=== PATIENT | male | born 1955 ===

== ENCOUNTER 2019-08-08 09:34 | Emergency (ER) | payer BC ==
[2019-08-08] MEDS ORDERED: Sodium Chloride 0.9% 10 ML Syringe FLUSH PRN (09:48)
[2019-08-08] MEDS ORDERED: Ondansetron 4 MG/2 ML SDV IVPUSH ONE (09:48)
[2019-08-08] MEDS ORDERED: Sodium Chloride 0.9% 2.5 ML Syringe FLUSH PRN ×2 (09:48)
[2019-08-08] MEDS ORDERED: Sodium Chloride 0.9% 1,000 ML IV ONE (09:48)
[2019-08-08] MEDS ORDERED: Famotidine 20 MG/2 ML SDV IVPUSH ONE (09:56)
[2019-08-08] MEDS ORDERED: Sodium Chloride 0.9% 1,000 ML IV SCH ×2 (10:00→14:30)
[2019-08-08 10:36] LABS: CARBON DIOXIDE,CO2 28.8 mmol/L (21.0-32.0); POTASSIUM,K 2.8 mmol/L (3.5-5.1)
--- NOTE | 2019-08-08 11:25 | CT ---
CT abdomen and pelvis Technique: Multiple axial sections were obtained from above the dome of the diaphragm inferiorly through the pubic symphysis. Intravenous and oral contrast not utilized. Dilated fluid-filled stomach as well as dilated small bowel loops are seen. Dilatation appears to stop at an area of spiculation within the mid abdomen. Difficult to exclude a mesenteric mass as the etiology. Findings could also represent an exophytic pancreatic carcinoma. Loculated pleural effusions are seen within both lung bases. Several calcified gallstones are seen within the gallbladder. Fatty infiltration is seen within the liver. Spleen size is normal. Adrenal glands show no nodule. Aorta shows no aneurysm. No retroperitoneal adenopathy is seen. No pelvic mass or adenopathy is seen. Small fat-containing bilateral inguinal hernias are noted. Bone window settings were reviewed which shows scattered degenerative changes within the spine. No acute osseous finding is appreciated. Impression: 1. Dilated small bowel loops which stops within the mid abdomen in an area of what appears to be a mesenteric mass. This mass could also represent an exophytic pancreatic mass. In any event, findings are suspicious for obstruction from neoplasm. 2. Fatty infiltration within the liver. 3. Small loculated bilateral pleural effusions. 4. Fatty infiltration within the liver. Other findings believed to be incidental as noted above. Diagnostic code #9 This report was dictated in MDT
[2019-08-08] MEDS ORDERED: Lidocaine 2% Viscous Solution 100 ML Bottle PO ONE (12:11)
[2019-08-08] MEDS ORDERED: Sodium Chloride 0.9% 500 ML IV SCH ×4 (12:20→14:00)
--- NOTE | 2019-08-08 12:54 | CR ---
Abdomen: Supine view of the abdomen was obtained utilizing portable technique. Nasogastric tube is seen. Tip lies within the body or antrum of the stomach in satisfactory position. Dilated small bowel loops are noted. Degenerative change is seen within the spine. Impression: 1. Satisfactory position of nasogastric tube. 2. Partially visualized small bowel obstruction. Diagnostic code #3 This report was dictated in MDT
--- NOTE | 2019-08-08 13:33 | PCM.CONS ---
<Ping Murillo M - Last Filed: 08/08/19 13:32> H&P History of Present Illness abdominal pain Pain Score (Numeric/FACES): 4 - Related Data Allergies/Adverse Reactions: Allergies Allergy/AdvReac Type Severity Reaction Status Date / Time No Known Allergies Allergy Verified 08/08/19 09:46 Past Medical History - Past Health History Medical/Surgical History: Denies Medical/Surgical History - Infectious Disease History Infectious Disease History: Reports: Chicken Pox Social & Family History - Family History Family Medical History: Noncontributory - Tobacco Use Smoking Status *Q: Never Smoker - Recreational Drug Use Recreational Drug Use: No Exam - Vital Signs Vital Signs: Last Vital Signs Temp 35.3 C L 08/08/19 09:46 Pulse 90 08/08/19 12:45 Resp 20 08/08/19 12:45 BP 98/67 08/08/19 12:45 Pulse Ox 94 L 08/08/19 12:45 Weight: 113.398 kg - Patient Data Lab Results Last 24 hrs: Laboratory Results - last 24 hr 08/08/19 08/08/19 08/08/19 Range/Units 09:44 09:44 09:44 WBC 17.06 H (4.0-11.0) K/uL RBC 4.99 (4.50-5.90) M/uL Hgb 14.8 (13.0-17.0) g/dL Hct 43.9 (38.0-50.0) % MCV 88.0 (80.0-98.0) fL MCH 29.7 (27.0-32.0) pg MCHC 33.7 (31.0-37.0) g/dL RDW Std Deviation 45.4 (28.0-62.0) fl RDW Coeff of Elver 14 (11.0-15.0) % Plt Count 372 (150-400) K/uL MPV 10.90 (7.40-12.00) fL Add Manual Diff YES Neutrophils % (Manual) 34 L (48.0-80.0) % Band Neutrophils % 21 % Lymphocytes % (Manual) 23 (16.0-40.0) % Monocytes % (Manual) 22 H (0.0-15.0) % Nucleated RBC % 0.0 /100WBC Absolute Seg Neuts 5.8 H (1.4-5.7) Band Neutrophils # 3.6 Lymphocytes # (Manual) 3.9 H (0.6-2.4) Monocytes # (Manual) 3.8 H (0.0-0.8) Nucleated RBCs # 0 K/uL INR 0.97 APTT 28.5 (18.6-31.3) SEC Sodium 130 L (136-148) mmol/L Potassium 2.8 L (3.5-5.1) mmol/L Chloride 87 L (98-107) mmol/L Carbon Dioxide 28.8 (21.0-32.0) mmol/L BUN 90 H (7.0-18.0) mg/dL Creatinine 5.3 H (0.8-1.3) mg/dL Est Cr Clr Drug Dosing 15.39 mL/min Estimated GFR (MDRD) 11.0 ml/min Glucose 193 H (74-106) mg/dL Calcium 8.4 L (8.5-10.1) mg/dL Total Bilirubin 1.2 H (0.2-1.0) mg/dL AST 51 H (15-37) IU/L ALT 76 H (14-63) IU/L Alkaline Phosphatase 49 (46-116) U/L Total Protein 6.4 (6.4-8.2) g/dL Albumin 2.2 L (3.4-5.0) g/dL Globulin 4.2 H (2.6-4.0) g/dL Albumin/Globulin Ratio 0.5 L (0.9-1.6) Lipase 481 H (73-393) U/L Blood Type Antibody Screen 08/08/19 Range/Units 09:50 WBC (4.0-11.0) K/uL RBC (4.50-5.90) M/uL Hgb (13.0-17.0) g/dL Hct (38.0-50.0) % MCV (80.0-98.0) fL MCH (27.0-32.0) pg MCHC (31.0-37.0) g/dL RDW Std Deviation (28.0-62.0) fl RDW Coeff of Elver (11.0-15.0) % Plt Count (150-400) K/uL MPV (7.40-12.00) fL Add Manual Diff Neutrophils % (Manual) (48.0-80.0) % Band Neutrophils % % Lymphocytes % (Manual) (16.0-40.0) % Monocytes % (Manual) (0.0-15.0) % Nucleated RBC % /100WBC Absolute Seg Neuts (1.4-5.7) Band Neutrophils # Lymphocytes # (Manual) (0.6-2.4) Monocytes # (Manual) (0.0-0.8) Nucleated RBCs # K/uL INR APTT (18.6-31.3) SEC Sodium (136-148) mmol/L Potassium (3.5-5.1) mmol/L Chloride (98-107) mmol/L Carbon Dioxide (21.0-32.0) mmol/L BUN (7.0-18.0) mg/dL Creatinine (0.8-1.3) mg/dL Est Cr Clr Drug Dosing mL/min Estimated GFR (MDRD) ml/min Glucose (74-106) mg/dL Calcium (8.5-10.1) mg/dL Total Bilirubin (0.2-1.0) mg/dL AST (15-37) IU/L ALT (14-63) IU/L Alkaline Phosphatase (46-116) U/L Total Protein (6.4-8.2) g/dL Albumin (3.4-5.0) g/dL Globulin (2.6-4.0) g/dL Albumin/Globulin Ratio (0.9-1.6) Lipase (73-393) U/L Blood Type A POSITIVE Antibody Screen NEGATIVE Result Diagrams: 08/08/19 09:44 08/08/19 09:44 Sepsis Event Note - Evaluation Sepsis Screening Result: No Definite Risk - Focused Exam Vital Signs: Vital Signs Temp Pulse Resp BP Pulse Ox 08/08/19 12:45 90 20 98/67 94 L 08/08/19 11:20 95 18 101/59 L 95 08/08/19 10:35 94 20 92/61 94 L 08/08/19 10:25 93 20 100/63 95 08/08/19 10:15 92 22 H 100/59 L 94 L 08/08/19 09:55 99 20 106/42 L 93 L 08/08/19 09:46 35.3 C L 103 H 20 87/52 L 85 L Date Exam was Performed: 08/08/19 Time Exam was Performed: 13:32 Consult PN Assessment/Plan Procedures: Procedures ASSAY THYROID STIM HORMONE (01/14/14) COMPREHEN METABOLIC PANEL (09/15/18) LIPID PANEL (09/15/18) ROUTINE VENIPUNCTURE (09/15/18) <Jose A Sanchez - Last Filed: 08/08/19 14:28> H&P History of Present Illness - General Date of Service: 08/08/19 - History of Present Illness Initial Comments - Free Text/Narative: History of present illness: [] Patient presents with abdominal pain and vomiting since she states she has been having distended abdomen and vomiting and just dry heaving is not been able to hold down any food or fluids. Had anything like this before denies any prior surgeries no fever chills he does admit that he has not been passing gas in several days. Thing seems to make it better or worse Review of systems: As per history of present illness and below otherwise all systems reviewed and negative. Past medical history: As per history of present illness and as reviewed below otherwise noncontributory. Surgical history: As per history of present illness and as reviewed below otherwise noncontributory. Social history: No reported history of drug or alcohol abuse. Family history: As per history of present illness and as reviewed below otherwise noncontributory. Physical exam: HEENT: Atraumatic, normocephalic, pupils reactive, negative for conjunctival pallor or scleral icterus, mucous membranes moist, throat clear, neck supple, nontender, trachea midline. Lungs: Clear to auscultation, breath sounds equal bilaterally, chest nontender. Heart: S1S2, regular, negative for clicks, rubs, or JVD. Abdomen: Abdomen is distended hyperresonant to percussion there is diffuse tenderness on palpation. Pelvis: Stable nontender. Genitourinary: Deferred. Rectal: Deferred. Extremities: Atraumatic, negative for cords or calf pain. Neurovascular unremarkable. Neuro: Awake, alert, oriented. Cranial nerves II through XII unremarkable. Cerebellum unremarkable. Motor and sensory unremarkable throughout. Exam nonfocal. Diagnostics: [] Therapeutics: [] Impressin small bowel obstruction, abdominal pain, abdominal mass, renal failure Plan: []Patient will undergo CT scanning of his abdomen and pelvis for presumed bowel obstruction labs will be drawn medicine will be given for pain and discomfort nausea and he will be reassessed. Patient has some hypotension he will be given fluid boluses as well as maintenance fluids [] Definitive disposition and diagnosis as appropriate pending reevaluation and review of above. H&P Review of Systems - Review of Systems: Review Of Systems: See Below Exam - Exam Exam: See Below - Vital Signs Vital Signs: Last Vital Signs Temp 35.3 C L 08/08/19 09:46 Pulse 87 08/08/19 13:47 Resp 18 08/08/19 13:47 BP 88/47 L 08/08/19 13:47 Pulse Ox 95 08/08/19 13:47 - Patient Data Lab Results Last 24 hrs: Laboratory Results - last 24 hr 08/08/19 08/08/19 08/08/19 Range/Units 09:44 09:44 09:44 WBC 17.06 H (4.0-11.0) K/uL RBC 4.99 (4.50-5.90) M/uL Hgb 14.8 (13.0-17.0) g/dL Hct 43.9 (38.0-50.0) % MCV 88.0 (80.0-98.0) fL MCH 29.7 (27.0-32.0) pg MCHC 33.7 (31.0-37.0) g/dL RDW Std Deviation 45.4 (28.0-62.0) fl RDW Coeff of Elver 14 (11.0-15.0) % Plt Count 372 (150-400) K/uL MPV 10.90 (7.40-12.00) fL Add Manual Diff YES Neutrophils % (Manual) 34 L (48.0-80.0) % Band Neutrophils % 21 % Lymphocytes % (Manual) 23 (16.0-40.0) % Monocytes % (Manual) 22 H (0.0-15.0) % Nucleated RBC % 0.0 /100WBC Absolute Seg Neuts 5.8 H (1.4-5.7) Band Neutrophils # 3.6 Lymphocytes # (Manual) 3.9 H (0.6-2.4) Monocytes # (Manual) 3.8 H (0.0-0.8) Nucleated RBCs # 0 K/uL INR 0.97 APTT 28.5 (18.6-31.3) SEC Sodium 130 L (136-148) mmol/L Potassium 2.8 L (3.5-5.1) mmol/L Chloride 87 L (98-107) mmol/L Carbon Dioxide 28.8 (21.0-32.0) mmol/L BUN 90 H (7.0-18.0) mg/dL Creatinine 5.3 H (0.8-1.3) mg/dL Est Cr Clr Drug Dosing 15.39 mL/min Estimated GFR (MDRD) 11.0 ml/min Glucose 193 H (74-106) mg/dL Calcium 8.4 L (8.5-10.1) mg/dL Total Bilirubin 1.2 H (0.2-1.0) mg/dL AST 51 H (15-37) IU/L ALT 76 H (14-63) IU/L Alkaline Phosphatase 49 (46-116) U/L Total Protein 6.4 (6.4-8.2) g/dL Albumin 2.2 L (3.4-5.0) g/dL Globulin 4.2 H (2.6-4.0) g/dL Albumin/Globulin Ratio 0.5 L (0.9-1.6) Lipase 481 H (73-393) U/L Blood Type Antibody Screen 08/08/19 Range/Units 09:50 WBC (4.0-11.0) K/uL RBC (4.50-5.90) M/uL Hgb (13.0-17.0) g/dL Hct (38.0-50.0) % MCV (80.0-98.0) fL MCH (27.0-32.0) pg MCHC (31.0-37.0) g/dL RDW Std Deviation (28.0-62.0) fl RDW Coeff of Elver (11.0-15.0) % Plt Count (150-400) K/uL MPV (7.40-12.00) fL Add Manual Diff Neutrophils % (Manual) (48.0-80.0) % Band Neutrophils % % Lymphocytes % (Manual) (16.0-40.0) % Monocytes % (Manual) (0.0-15.0) % Nucleated RBC % /100WBC Absolute Seg Neuts (1.4-5.7) Band Neutrophils # Lymphocytes # (Manual) (0.6-2.4) Monocytes # (Manual) (0.0-0.8) Nucleated RBCs # K/uL INR APTT (18.6-31.3) SEC Sodium (136-148) mmol/L Potassium (3.5-5.1) mmol/L Chloride (98-107) mmol/L Carbon Dioxide (21.0-32.0) mmol/L BUN (7.0-18.0) mg/dL Creatinine (0.8-1.3) mg/dL Est Cr Clr Drug Dosing mL/min Estimated GFR (MDRD) ml/min Glucose (74-106) mg/dL Calcium (8.5-10.1) mg/dL Total Bilirubin (0.2-1.0) mg/dL AST (15-37) IU/L ALT (14-63) IU/L Alkaline Phosphatase (46-116) U/L Total Protein (6.4-8.2) g/dL Albumin (3.4-5.0) g/dL Globulin (2.6-4.0) g/dL Albumin/Globulin Ratio (0.9-1.6) Lipase (73-393) U/L Blood Type A POSITIVE Antibody Screen NEGATIVE Result Diagrams: 08/08/19 09:44 08/08/19 09:44 Sepsis Event Note - Focused Exam Vital Signs: Vital Signs Temp Pulse Resp BP Pulse Ox 08/08/19 13:47 87 18 88/47 L 95 08/08/19 12:45 90 20 98/67 94 L 08/08/19 12:20 96 20 92/37 L 91 L 08/08/19 11:40 94 18 113/56 L 95 08/08/19 11:20 95 18 101/59 L 95 08/08/19 10:35 94 20 92/61 94 L 08/08/19 10:25 93 20 100/63 95 08/08/19 10:15 92 22 H 100/59 L 94 L 08/08/19 09:55 99 20 106/42 L 93 L 08/08/19 09:46 35.3 C L 103 H 20 87/52 L 85 L Date Exam was Performed: 08/08/19 Time Exam was Performed: 14:23 Consult PN Assessment/Plan Procedures: Procedures ASSAY THYROID STIM HORMONE (01/14/14) COMPREHEN METABOLIC PANEL (09/15/18) LIPID PANEL (09/15/18) ROUTINE VENIPUNCTURE (09/15/18) My Orders Last 24 Hours: My Active Orders 08/08/19 09:48 Sodium Chloride 0.9% [Saline Flush] 10 ml FLUSH ASDIRECTED PRN Sodium Chloride 0.9% [Saline Flush] 2.5 ml FLUSH ASDIRECTED PRN Sodium Chloride 0.9% [Saline Flush] 2.5 ml FLUSH ASDIRECTED PRN Saline Lock Insert [OM.PC] Stat 08/08/19 10:00 Sodium Chloride 0.9% [Normal Saline] 1,000 ml IV ASDIRECTED 08/08/19 10:13 EKG 12 Lead [EKG Documentation Completion] [RC] ROUTINE 08/08/19 12:04 NG [Nasogastric Orogastric Tube Insertion] [OM.PC] Stat 08/08/19 12:05 Gastrointestinal Tube Mgmt [RC] ASDIRECTED 08/08/19 12:12 NG [Nasogastric Orogastric Tube Insertion] [OM.PC] Stat 08/08/19 12:13 Gastrointestinal Tube Mgmt [RC] ASDIRECTED 08/08/19 12:20 Sodium Chloride 0.9% [Normal Saline] 500 ml IV .BOLUS 08/08/19 12:30 Sodium Chloride 0.9% [Normal Saline] 500 ml IV .BOLUS 08/08/19 14:00 Sodium Chloride 0.9% [Normal Saline] 500 ml IV .BOLUS 08/08/19 14:30 Sodium Chloride 0.9% [Normal Saline] 1,000 ml IV ASDIRECTED 08/08/19 Lunch NPO Now [Nothing per Oral Now Diet] [DIET]
--- NOTE | 2019-08-08 14:37 | EDM.PDOC ---
ED HPI GENERAL MEDICAL PROBLEM - General Chief Complaint: Gastrointestinal Problem Stated Complaint: HIGH BP Time Seen by Provider: 08/08/19 09:38 - History of Present Illness INITIAL COMMENTS - FREE TEXT/NARRATIVE: History of present illness: [The patient presents after vomiting and abdominal pain that began he has had distention and pain since no prior surgeries he denies any fever or chills he has not been able to pass gas in the past several days nothing seems to make it better or worse. He has never had anything like this before Review of systems: As per history of present illness and below otherwise all systems reviewed and negative. Past medical history: As per history of present illness and as reviewed below otherwise noncontributory. Surgical history: As per history of present illness and as reviewed below otherwise noncontributory. Social history: No reported history of drug or alcohol abuse. Family history: As per history of present illness and as reviewed below otherwise noncontributory. Physical exam: HEENT: Atraumatic, normocephalic, pupils reactive, negative for conjunctival pallor or scleral icterus, mucous membranes moist, throat clear, neck supple, nontender, trachea midline. Lungs: Clear to auscultation, breath sounds equal bilaterally, chest nontender. Heart: S1S2, regular, negative for clicks, rubs, or JVD. Abdomen: Is distended diffusely tender with decreased bowel sounds and hyperresonance to percussion consistent with a bowel obstruction Pelvis: Stable nontender. Genitourinary: Deferred. Rectal: Deferred. Extremities: Atraumatic, negative for cords or calf pain. Neurovascular unremarkable. Neuro: Awake, alert, oriented. Cranial nerves II through XII unremarkable. Cerebellum unremarkable. Motor and sensory unremarkable throughout. Exam nonfocal. Diagnostics: [] Therapeutics: [] Impression: Abdominal pain small bowel obstruction [] Plan: Patient will undergo CT scan of the abdomen IV fluids will be initiated because he is hypotensive labs will be obtained the patient will be reassessed [] Definitive disposition and diagnosis as appropriate pending reevaluation and review of above. abdominal pain Pain Score (Numeric/FACES): 4 - Related Data Allergies Allergy/AdvReac Type Severity Reaction Status Date / Time No Known Allergies Allergy Verified 08/08/19 09:46 Past Medical History - Past Health History Medical/Surgical History: Denies Medical/Surgical History - Infectious Disease History Infectious Disease History: Reports: Chicken Pox Social & Family History - Family History Family Medical History: Noncontributory - Tobacco Use Smoking Status *Q: Never Smoker - Recreational Drug Use Recreational Drug Use: No ED ROS GENERAL - Review of Systems Review Of Systems: See Below ED EXAM, GENERAL - Physical Exam Exam: See Below Course - Vital Signs Text/Narrative:: The case with surgery she evaluated the patient in the emergency department at 1 PM. Is concerned about the mass and recommends the patient be seen by an advanced surgical team in [place] she contacted them herself arrange for the transfer. Patient continues to be hypotensive several fluid boluses have been given and the patient was reassessed after each bolus. Last Recorded V/S: Last Vital Signs Temp 35.3 C L 08/08/19 09:46 Pulse 89 08/08/19 14:26 Resp 18 08/08/19 14:26 BP 94/48 L 08/08/19 14:26 Pulse Ox 97 08/08/19 14:26 - Orders/Labs/Meds Orders: Active Orders 24 hr Category Date Time Status EKG 12 Lead [EKG Documentation Completion] [RC] ROUTINE Care 08/08/19 10:13 Active Gastrointestinal Tube Mgmt [RC] ASDIRECTED Care 08/08/19 12:05 Active Gastrointestinal Tube Mgmt [RC] ASDIRECTED Care 08/08/19 12:13 Active NPO Now [Nothing per Oral Now Diet] [DIET] Diet 08/08/19 Lunch Active Sodium Chloride 0.9% [Normal Saline] 1,000 ml Med 08/08/19 10:00 Active IV ASDIRECTED Sodium Chloride 0.9% [Normal Saline] 1,000 ml Med 08/08/19 14:30 Active IV ASDIRECTED Sodium Chloride 0.9% [Normal Saline] 500 ml Med 08/08/19 12:20 Active IV .BOLUS Sodium Chloride 0.9% [Normal Saline] 500 ml Med 08/08/19 12:30 Active IV .BOLUS Sodium Chloride 0.9% [Normal Saline] 500 ml Med 08/08/19 14:00 Active IV .BOLUS Sodium Chloride 0.9% [Saline Flush] Med 08/08/19 09:48 Active 10 ml FLUSH ASDIRECTED PRN Sodium Chloride 0.9% [Saline Flush] Med 08/08/19 09:48 Active 2.5 ml FLUSH ASDIRECTED PRN Sodium Chloride 0.9% [Saline Flush] Med 08/08/19 09:48 Active 2.5 ml FLUSH ASDIRECTED PRN NG [Nasogastric Orogastric Tube Insertion] [OM.PC] Stat [facility] 08/08/19 12:04 Ordered NG [Nasogastric Orogastric Tube Insertion] [OM.PC] Stat Ot 08/08/19 12:12 Ordered Saline Lock Insert [OM.PC] Stat [facility] 08/08/19 09:48 Ordered Medication Orders Sodium Chloride (Normal Saline) 1,000 mls @ 125 mls/hr IV ASDIRECTED MARK Last Admin: 08/08/19 10:14 Dose: 125 mls/hr Sodium Chloride (Normal Saline) 500 mls @ 500 mls/hr IV .BOLUS MARK Last Admin: 08/08/19 12:10 Dose: 500 mls/hr Sodium Chloride (Normal Saline) 500 mls @ 999 mls/hr IV .BOLUS MARK Sodium Chloride (Normal Saline) 500 mls @ 999 mls/hr IV .BOLUS MARK Last Admin: 08/08/19 14:11 Dose: 999 mls/hr Sodium Chloride (Normal Saline) 1,000 mls @ 150 mls/hr IV ASDIRECTED MARK Last Admin: 08/08/19 14:26 Dose: 150 mls/hr Sodium Chloride (Saline Flush) 2.5 ml FLUSH ASDIRECTED PRN PRN Reason: Keep Vein Open Last Admin: 08/08/19 10:10 Dose: 2.5 ml Sodium Chloride (Saline Flush) 10 ml FLUSH ASDIRECTED PRN PRN Reason: Keep Vein Open Last Admin: 08/08/19 10:10 Dose: 10 ml Sodium Chloride (Saline Flush) 2.5 ml FLUSH ASDIRECTED PRN PRN Reason: Keep Vein Open Last Admin: 08/08/19 10:09 Dose: 2.5 ml Labs: Laboratory Tests 08/08/19 08/08/19 08/08/19 Range/Units 09:44 09:44 09:44 WBC 17.06 H (4.0-11.0) K/uL RBC 4.99 (4.50-5.90) M/uL Hgb 14.8 (13.0-17.0) g/dL Hct 43.9 (38.0-50.0) % MCV 88.0 (80.0-98.0) fL MCH 29.7 (27.0-32.0) pg MCHC 33.7 (31.0-37.0) g/dL RDW Std Deviation 45.4 (28.0-62.0) fl RDW Coeff of Elver 14 (11.0-15.0) % Plt Count 372 (150-400) K/uL MPV 10.90 (7.40-12.00) fL Add Manual Diff YES Neutrophils % (Manual) 34 L (48.0-80.0) % Band Neutrophils % 21 % Lymphocytes % (Manual) 23 (16.0-40.0) % Monocytes % (Manual) 22 H (0.0-15.0) % Nucleated RBC % 0.0 /100WBC Absolute Seg Neuts 5.8 H (1.4-5.7) Band Neutrophils # 3.6 Lymphocytes # (Manual) 3.9 H (0.6-2.4) Monocytes # (Manual) 3.8 H (0.0-0.8) Nucleated RBCs # 0 K/uL INR 0.97 APTT 28.5 (18.6-31.3) SEC Sodium 130 L (136-148) mmol/L Potassium 2.8 L (3.5-5.1) mmol/L Chloride 87 L (98-107) mmol/L Carbon Dioxide 28.8 (21.0-32.0) mmol/L BUN 90 H (7.0-18.0) mg/dL Creatinine 5.3 H (0.8-1.3) mg/dL Est Cr Clr Drug Dosing 15.39 mL/min Estimated GFR (MDRD) 11.0 ml/min Glucose 193 H (74-106) mg/dL Calcium 8.4 L (8.5-10.1) mg/dL Total Bilirubin 1.2 H (0.2-1.0) mg/dL AST 51 H (15-37) IU/L ALT 76 H (14-63) IU/L Alkaline Phosphatase 49 (46-116) U/L Total Protein 6.4 (6.4-8.2) g/dL Albumin 2.2 L (3.4-5.0) g/dL Globulin 4.2 H (2.6-4.0) g/dL Albumin/Globulin Ratio 0.5 L (0.9-1.6) Lipase 481 H (73-393) U/L Blood Type Antibody Screen 08/08/19 Range/Units 09:50 WBC (4.0-11.0) K/uL RBC (4.50-5.90) M/uL Hgb (13.0-17.0) g/dL Hct (38.0-50.0) % MCV (80.0-98.0) fL MCH (27.0-32.0) pg MCHC (31.0-37.0) g/dL RDW Std Deviation (28.0-62.0) fl RDW Coeff of Elver (11.0-15.0) % Plt Count (150-400) K/uL MPV (7.40-12.00) fL Add Manual Diff Neutrophils % (Manual) (48.0-80.0) % Band Neutrophils % % Lymphocytes % (Manual) (16.0-40.0) % Monocytes % (Manual) (0.0-15.0) % Nucleated RBC % /100WBC Absolute Seg Neuts (1.4-5.7) Band Neutrophils # Lymphocytes # (Manual) (0.6-2.4) Monocytes # (Manual) (0.0-0.8) Nucleated RBCs # K/uL INR APTT (18.6-31.3) SEC Sodium (136-148) mmol/L Potassium (3.5-5.1) mmol/L Chloride (98-107) mmol/L Carbon Dioxide (21.0-32.0) mmol/L BUN (7.0-18.0) mg/dL Creatinine (0.8-1.3) mg/dL Est Cr Clr Drug Dosing mL/min Estimated GFR (MDRD) ml/min Glucose (74-106) mg/dL Calcium (8.5-10.1) mg/dL Total Bilirubin (0.2-1.0) mg/dL AST (15-37) IU/L ALT (14-63) IU/L Alkaline Phosphatase (46-116) U/L Total Protein (6.4-8.2) g/dL Albumin (3.4-5.0) g/dL Globulin (2.6-4.0) g/dL Albumin/Globulin Ratio (0.9-1.6) Lipase (73-393) U/L Blood Type A POSITIVE Antibody Screen NEGATIVE Meds: Medications Generic Name Dose Route Start Last Admin Trade Name Hazel PRN Reason Stop Dose Admin Sodium Chloride 1,000 mls @ 125 mls/hr 08/08/19 10:00 08/08/19 10:14 Normal Saline IV 125 mls/hr ASDIRECTED MARK Administration Sodium Chloride 500 mls @ 500 mls/hr 08/08/19 12:30 08/08/19 12:10 Normal Saline IV 500 mls/hr .BOLUS MARK Administration Sodium Chloride 500 mls @ 999 mls/hr 08/08/19 14:00 Normal Saline IV .BOLUS MARK Sodium Chloride 500 mls @ 999 mls/hr 08/08/19 12:20 08/08/19 14:11 Normal Saline IV 999 mls/hr .BOLUS MARK Administration Sodium Chloride 1,000 mls @ 150 mls/hr 08/08/19 14:30 08/08/19 14:26 Normal Saline IV 150 mls/hr ASDIRECTED MARK Administration Sodium Chloride 2.5 ml 08/08/19 09:48 08/08/19 10:10 Saline Flush FLUSH 2.5 ml ASDIRECTED PRN Administration Keep Vein Open Sodium Chloride 10 ml 08/08/19 09:48 08/08/19 10:10 Saline Flush FLUSH 10 ml ASDIRECTED PRN Administration Keep Vein Open Sodium Chloride 2.5 ml 08/08/19 09:48 08/08/19 10:09 Saline Flush FLUSH 2.5 ml ASDIRECTED PRN Administration Keep Vein Open Discontinued Medications Generic Name Dose Route Start Last Admin Trade Name Hazel PRN Reason Stop Dose Admin Famotidine 20 mg 08/08/19 09:56 08/08/19 10:09 Pepcid IVPUSH 08/08/19 09:57 20 mg ONETIME ONE Administration Sodium Chloride 1,000 mls @ 999 mls/hr 08/08/19 09:48 08/08/19 10:09 Normal Saline IV 08/08/19 10:48 999 mls/hr BOLUS ONE Administration Sodium Chloride 500 mls @ 999 mls/hr 08/08/19 13:30 08/08/19 14:11 Normal Saline IV 08/08/19 14:00 999 mls/hr .BOLUS MARK Administration Lidocaine HCl 20 ml 08/08/19 12:11 08/08/19 12:31 Xylocaine 2% Viscous PO 08/08/19 12:12 Not Given ONETIME ONE Ondansetron HCl 4 mg 08/08/19 09:48 08/08/19 10:09 Zofran IVPUSH 08/08/19 09:49 4 mg ONETIME ONE Administration Departure - Departure Time of Disposition: 13:35 Disposition: DC/Tfer to Other 70 Condition: Fair Clinical Impression: Small bowel obstruction, Vomiting, Acute kidney injury - Discharge Information *PRESCRIPTION DRUG MONITORING PROGRAM REVIEWED*: Not Applicable *COPY OF PRESCRIPTION DRUG MONITORING REPORT IN PATIENT GUERITA: Not Applicable Referrals: Jelena Ramos NP [Primary Care Provider] - Sepsis Event Note - Evaluation Sepsis Screening Result: No Definite Risk - Focused Exam Vital Signs: Vital Signs Temp Pulse Resp BP Pulse Ox 08/08/19 14:26 89 18 94/48 L 97 08/08/19 13:47 87 18 88/47 L 95 08/08/19 12:45 90 20 98/67 94 L 08/08/19 12:20 96 20 92/37 L 91 L 08/08/19 11:40 94 18 113/56 L 95 08/08/19 11:20 95 18 101/59 L 95 08/08/19 10:35 94 20 92/61 94 L 08/08/19 10:25 93 20 100/63 95 08/08/19 10:15 92 22 H 100/59 L 94 L 08/08/19 09:55 99 20 106/42 L 93 L 08/08/19 09:46 35.3 C L 103 H 20 87/52 L 85 L Date Exam was Performed: 08/08/19 Time Exam was Performed: 14:32 - My Orders Last 24 Hours: My Active Orders 08/08/19 09:48 Sodium Chloride 0.9% [Saline Flush] 10 ml FLUSH ASDIRECTED PRN Sodium Chloride 0.9% [Saline Flush] 2.5 ml FLUSH ASDIRECTED PRN Sodium Chloride 0.9% [Saline Flush] 2.5 ml FLUSH ASDIRECTED PRN Saline Lock Insert [OM.PC] Stat 08/08/19 10:00 Sodium Chloride 0.9% [Normal Saline] 1,000 ml IV ASDIRECTED 08/08/19 10:13 EKG 12 Lead [EKG Documentation Completion] [RC] ROUTINE 08/08/19 12:04 NG [Nasogastric Orogastric Tube Insertion] [OM.PC] Stat 08/08/19 12:05 Gastrointestinal Tube Mgmt [RC] ASDIRECTED 08/08/19 12:12 NG [Nasogastric Orogastric Tube Insertion] [OM.PC] Stat 08/08/19 12:13 Gastrointestinal Tube Mgmt [RC] ASDIRECTED 08/08/19 12:20 Sodium Chloride 0.9% [Normal Saline] 500 ml IV .BOLUS 08/08/19 12:30 Sodium Chloride 0.9% [Normal Saline] 500 ml IV .BOLUS 08/08/19 14:00 Sodium Chloride 0.9% [Normal Saline] 500 ml IV .BOLUS 08/08/19 14:30 Sodium Chloride 0.9% [Normal Saline] 1,000 ml IV ASDIRECTED 08/08/19 Lunch NPO Now [Nothing per Oral Now Diet] [DIET] - Assessment/Plan Last 24 Hours: My Active Orders 08/08/19 09:48 Sodium Chloride 0.9% [Saline Flush] 10 ml FLUSH ASDIRECTED PRN Sodium Chloride 0.9% [Saline Flush] 2.5 ml FLUSH ASDIRECTED PRN Sodium Chloride 0.9% [Saline Flush] 2.5 ml FLUSH ASDIRECTED PRN Saline Lock Insert [OM.PC] Stat 08/08/19 10:00 Sodium Chloride 0.9% [Normal Saline] 1,000 ml IV ASDIRECTED 08/08/19 10:13 EKG 12 Lead [EKG Documentation Completion] [RC] ROUTINE 08/08/19 12:04 NG [Nasogastric Orogastric Tube Insertion] [OM.PC] Stat 08/08/19 12:05 Gastrointestinal Tube Mgmt [RC] ASDIRECTED 08/08/19 12:12 NG [Nasogastric Orogastric Tube Insertion] [OM.PC] Stat 08/08/19 12:13 Gastrointestinal Tube Mgmt [RC] ASDIRECTED 08/08/19 12:20 Sodium Chloride 0.9% [Normal Saline] 500 ml IV .BOLUS 08/08/19 12:30 Sodium Chloride 0.9% [Normal Saline] 500 ml IV .BOLUS 08/08/19 14:00 Sodium Chloride 0.9% [Normal Saline] 500 ml IV .BOLUS 08/08/19 14:30 Sodium Chloride 0.9% [Normal Saline] 1,000 ml IV ASDIRECTED 08/08/19 Lunch NPO Now [Nothing per Oral Now Diet] [DIET]
--- NOTE | 2019-08-08 17:35 | PCM.CONS ---
H&P History of Present Illness - General Date of Service: 08/08/19 Source of Information: Patient History Limitations: Reports: No Limitations - History of Present Illness Initial Comments - Free Text/Narative: Patient is a 64-year-old male who presents with nausea vomiting and abdominal pain since last . He denies ever having symptoms like this in the past. He has never had any abdominal surgeries. He has not been passing gas for the past several days. He complains of generalized malaise and feels like the pain is sharp and crampy in the lower abdomen. His vomitus appears green. abdominal pain Pain Score (Numeric/FACES): 4 - Related Data Allergies/Adverse Reactions: Allergies Allergy/AdvReac Type Severity Reaction Status Date / Time No Known Allergies Allergy Verified 08/08/19 09:46 Past Medical History Cardiovascular History: Reports: High Cholesterol, Hypertension Neurological History: Reports: CVA - Infectious Disease History Infectious Disease History: Reports: Chicken Pox - Past Surgical History Head Surgeries/Procedures: Reports: None Social & Family History - Family History Family Medical History: Noncontributory - Tobacco Use Smoking Status *Q: Never Smoker - Recreational Drug Use Recreational Drug Use: No H&P Review of Systems - Review of Systems: Review Of Systems: Comprehensive ROS is negative, except as noted in HPI. Exam - Exam Exam: See Below - Vital Signs Vital Signs: Last Vital Signs Temp 36.1 C 08/08/19 15:39 Pulse 90 08/08/19 15:50 Resp 20 08/08/19 15:50 BP 85/54 L 08/08/19 15:50 Pulse Ox 96 08/08/19 15:50 Weight: 113.398 kg - Exam Quality Assessment: Supplemental Oxygen General: Alert, Oriented, Mild Distress HEENT: Conjunctiva Clear, Other (NG in place with large amount of bilious output. ) Lungs: Clear to Auscultation, Normal Respiratory Effort Cardiovascular: Regular Rate, Regular Rhythm GI/Abdominal Exam: Other (Grossly distended. No rebound guarding or tenderness with palpation or percussion. Tympanitic on percussion. ) Back Exam: Normal Inspection Extremities: Normal Inspection - Patient Data Lab Results Last 24 hrs: Laboratory Results - last 24 hr 08/08/19 08/08/19 08/08/19 Range/Units 09:44 09:44 09:44 WBC 17.06 H (4.0-11.0) K/uL RBC 4.99 (4.50-5.90) M/uL Hgb 14.8 (13.0-17.0) g/dL Hct 43.9 (38.0-50.0) % MCV 88.0 (80.0-98.0) fL MCH 29.7 (27.0-32.0) pg MCHC 33.7 (31.0-37.0) g/dL RDW Std Deviation 45.4 (28.0-62.0) fl RDW Coeff of Elver 14 (11.0-15.0) % Plt Count 372 (150-400) K/uL MPV 10.90 (7.40-12.00) fL Add Manual Diff YES Neutrophils % (Manual) 34 L (48.0-80.0) % Band Neutrophils % 21 % Lymphocytes % (Manual) 23 (16.0-40.0) % Monocytes % (Manual) 22 H (0.0-15.0) % Nucleated RBC % 0.0 /100WBC Absolute Seg Neuts 5.8 H (1.4-5.7) Band Neutrophils # 3.6 Lymphocytes # (Manual) 3.9 H (0.6-2.4) Monocytes # (Manual) 3.8 H (0.0-0.8) Nucleated RBCs # 0 K/uL INR 0.97 APTT 28.5 (18.6-31.3) SEC Sodium 130 L (136-148) mmol/L Potassium 2.8 L (3.5-5.1) mmol/L Chloride 87 L (98-107) mmol/L Carbon Dioxide 28.8 (21.0-32.0) mmol/L BUN 90 H (7.0-18.0) mg/dL Creatinine 5.3 H (0.8-1.3) mg/dL Est Cr Clr Drug Dosing 15.39 mL/min Estimated GFR (MDRD) 11.0 ml/min Glucose 193 H (74-106) mg/dL Calcium 8.4 L (8.5-10.1) mg/dL Total Bilirubin 1.2 H (0.2-1.0) mg/dL AST 51 H (15-37) IU/L ALT 76 H (14-63) IU/L Alkaline Phosphatase 49 (46-116) U/L Total Protein 6.4 (6.4-8.2) g/dL Albumin 2.2 L (3.4-5.0) g/dL Globulin 4.2 H (2.6-4.0) g/dL Albumin/Globulin Ratio 0.5 L (0.9-1.6) Lipase 481 H (73-393) U/L Blood Type Antibody Screen 08/08/19 Range/Units 09:50 WBC (4.0-11.0) K/uL RBC (4.50-5.90) M/uL Hgb (13.0-17.0) g/dL Hct (38.0-50.0) % MCV (80.0-98.0) fL MCH (27.0-32.0) pg MCHC (31.0-37.0) g/dL RDW Std Deviation (28.0-62.0) fl RDW Coeff of Elver (11.0-15.0) % Plt Count (150-400) K/uL MPV (7.40-12.00) fL Add Manual Diff Neutrophils % (Manual) (48.0-80.0) % Band Neutrophils % % Lymphocytes % (Manual) (16.0-40.0) % Monocytes % (Manual) (0.0-15.0) % Nucleated RBC % /100WBC Absolute Seg Neuts (1.4-5.7) Band Neutrophils # Lymphocytes # (Manual) (0.6-2.4) Monocytes # (Manual) (0.0-0.8) Nucleated RBCs # K/uL INR APTT (18.6-31.3) SEC Sodium (136-148) mmol/L Potassium (3.5-5.1) mmol/L Chloride (98-107) mmol/L Carbon Dioxide (21.0-32.0) mmol/L BUN (7.0-18.0) mg/dL Creatinine (0.8-1.3) mg/dL Est Cr Clr Drug Dosing mL/min Estimated GFR (MDRD) ml/min Glucose (74-106) mg/dL Calcium (8.5-10.1) mg/dL Total Bilirubin (0.2-1.0) mg/dL AST (15-37) IU/L ALT (14-63) IU/L Alkaline Phosphatase (46-116) U/L Total Protein (6.4-8.2) g/dL Albumin (3.4-5.0) g/dL Globulin (2.6-4.0) g/dL Albumin/Globulin Ratio (0.9-1.6) Lipase (73-393) U/L Blood Type A POSITIVE Antibody Screen NEGATIVE Result Diagrams: 08/08/19 09:44 08/08/19 09:44 Sepsis Event Note - Evaluation Sepsis Screening Result: No Definite Risk - Focused Exam Vital Signs: Vital Signs Temp Pulse Resp BP Pulse Ox 08/08/19 15:50 90 20 85/54 L 96 08/08/19 15:45 88 20 88/58 L 95 08/08/19 15:39 36.1 C 87 18 88/59 L 96 08/08/19 15:35 87 18 90/57 L 95 08/08/19 15:30 89 18 91/56 L 94 L 08/08/19 15:20 85 18 89/56 L 96 08/08/19 15:15 86 18 92/57 L 96 08/08/19 15:06 87 18 93/55 L 97 08/08/19 14:55 89 18 90/56 L 97 08/08/19 14:50 84 20 87/51 L 96 08/08/19 14:40 88 20 87/57 L 97 08/08/19 14:30 88 18 92/54 L 97 08/08/19 14:26 89 18 94/48 L 97 08/08/19 14:20 87 20 87/54 L 96 08/08/19 14:15 86 18 103/48 L 97 08/08/19 14:00 92 88/47 L 08/08/19 13:47 87 18 88/47 L 95 08/08/19 13:30 90 20 83/43 L 97 08/08/19 13:15 36.4 C 89 20 93/41 L 96 08/08/19 12:45 90 20 98/67 94 L 08/08/19 12:20 96 20 92/37 L 91 L 08/08/19 11:40 94 18 113/56 L 95 08/08/19 11:20 95 18 101/59 L 95 08/08/19 10:35 94 20 92/61 94 L 08/08/19 10:25 93 20 100/63 95 08/08/19 10:15 92 22 H 100/59 L 94 L 08/08/19 09:55 99 20 106/42 L 93 L 08/08/19 09:46 35.3 C L 103 H 20 87/52 L 85 L Date Exam was Performed: 08/08/19 Time Exam was Performed: 17:35 Consult PN Assessment/Plan Procedures: Procedures ASSAY THYROID STIM HORMONE (01/14/14) COMPREHEN METABOLIC PANEL (09/15/18) LIPID PANEL (09/15/18) ROUTINE VENIPUNCTURE (09/15/18) (1) Pancreatic abnormality SNOMED Code(s): 8625745 Code(s): Q45.3 - OTH CONGENITAL MALFORMATIONS OF PANCREAS AND PANCREATIC DUCT (2) Hyponatremia SNOMED Code(s): 68270977 Code(s): E87.1 - HYPO-OSMOLALITY AND HYPONATREMIA (3) Hypokalemia SNOMED Code(s): 56995492 Code(s): E87.6 - HYPOKALEMIA (4) Hypochloremia SNOMED Code(s): 49341307 Code(s): E87.8 - OTH DISORDERS OF ELECTROLYTE AND FLUID BALANCE, NEC (5) Leukocytosis SNOMED Code(s): 202908817, 293290883 Code(s): D72.829 - ELEVATED WHITE BLOOD CELL COUNT, UNSPECIFIED (6) Acute kidney injury SNOMED Code(s): 97755627, 84212733 Code(s): N17.9 - ACUTE KIDNEY FAILURE, UNSPECIFIED (7) Small bowel obstruction SNOMED Code(s): 118143446 Code(s): K56.609 - UNSP INTESTNL OBST, UNSP TO PARTIAL VERSUS COMPLETE OBST (8) Vomiting SNOMED Code(s): 660754839 Code(s): R11.10 - VOMITING, UNSPECIFIED Problem List Initiated/Reviewed/Updated: Yes Plan: The patient was slightly hypotensive and tachycardic on arrival. He was given subsequent fluid boluses with mild improvement in his blood pressure transiently. He was hyponatremic, hypokalemic, and hypochloremic. His leukocytosis of 17,000. He also had acute renal injury with a B1 of 90 and a creatinine of 5. He had an NG placed and the NG had approximately 1500 out once placed to low intermittent suction. His CT scan shows a pancreatic abnormality. The radiologist felt there may be an exophytic mass in the pancreas. It was felt that this was in correlation with and causing a small bowel obstruction. It was unclear whether this was a malignancy or severe inflammatory disease. Given the concern for malignancy, I consulted Dr. Sharma in [facility]. He is a surgical oncologist who also performs hepatobiliary surgery. He accepted the patient and he will be flown there directly.
== END 2019-08-08 16:10 | disposition other institution (70) ==
LOC: MW.ED 09:34
DX: K56.609 Unspecified intestinal obstruction, unspecified as to partial versus complete obstruction (principal); N17.9 Acute kidney failure, unspecified
CPT/HCPCS: 36415; 43752; 74018; 74176; 80053; 83690; 85025; 85610; 85730; 86850; 86900; 86901; 93005; 96361; 96374; 96375; 99285; A9270; J2405; J7030; J7040; S0028; 99284; J3490

== ENCOUNTER 2022-08-07 09:28 | Emergency (ER) | payer MEDICARE ==
[2022-08-07] MEDS ORDERED: Sodium Chloride 0.9% 2.5 ML Syringe FLUSH PRN (09:46)
[2022-08-07] MEDS ORDERED: Sodium Chloride 0.9% 10 ML Syringe FLUSH PRN (09:46)
[2022-08-07 09:52] LABS: BASOPHILS PERCENT AUTO 0.2 % (0.0-1.5); EOSINOPHILS PERCENT AUTO 0.7 % (0.0-7.0); HEMATOCRIT 42.8 % (38.0-50.0); HEMOGLOBIN 14.1 g/dL (13.0-17.0); LYMPHOCYTES PERCENT AUTO 19.1 % (16.0-40.0); MEAN CORPUSCULAR HEMOGLOBIN 26.9 pg (27.0-32.0); MEAN CORPUSCULAR HGB CONC 32.9 g/dL (31.0-37.0); MEAN CORPUSCULAR VOLUME 81.7 fL (80.0-98.0); MONOCYTES ABSOLUTE AUTO 0.6 K/uL (0.0-0.8); MONOCYTES PERCENT AUTO 11.8 % (0.0-15.0); NEUTROPHILS ABSOLUTE AUTO 3.6 K/uL (1.4-5.7); NEUTROPHILS PERCENT AUTO 68.2 % (48.0-80.0); NRBC ABSOLUTE 0 K/uL; PLATELET COUNT,PLT 143 K/uL (150-400); RED BLOOD CELL COUNT 5.24 M/uL (4.50-5.90); WHITE BLOOD CELL COUNT,WBC 5.34 K/uL (4.0-11.0)
[2022-08-07 09:57] LABS: INR 2.21 (0.86-1.11)
[2022-08-07] MEDS ORDERED: Iopamidol 755 MG/ML 500 ML Multipack Bottle IVPUSH ONE (10:06)
[2022-08-07 10:09] LABS: A/G RATIO 1.3 (0.9-1.6); ALBUMIN 3.8 g/dL (3.4-5.0); BILIRUBIN TOTAL 0.8 mg/dL (0.2-1.0); CALCIUM 9.1 mg/dL (8.5-10.1); CREATININE 1.3 mg/dL (0.8-1.3); EST CRCL DRUG DOSING (CG) 60.34 mL/min; PROTEIN TOTAL,TP 6.8 g/dL (6.4-8.2)
== END 2022-08-07 11:48 | disposition home or self-care (01) ==
LOC: MW.ED 09:28
DX: G51.0 Bell's palsy (principal); I10 Essential (primary) hypertension; E78.00 Pure hypercholesterolemia, unspecified; Z79.01 Long term (current) use of anticoagulants; Z79.899 Other long term (current) drug therapy
CPT/HCPCS: 36415; 70450; 70496; 70498; 80053; 82947; 84484; 85025; 85610; 93005; 99284; J3490; Q9967; 93010